=== PATIENT | male | born 1965 | race African-American/Black ===

== ENCOUNTER 2019-07-06 09:22 | Inpatient (IN) | payer SELFPAY ==
[2019-07-06 10:03] VITALS: BMI 24.7
--- NOTE | 2019-07-06 11:00 | HP ---
"CIWA Score Nausea/Vomitin-No Nausea/No Vomiting Muscle Tremors: None Anxiety: 0-No Anxiety, at Ease Agitation: 1-Slight > Activity Paroxysmal Sweats: 2 Orientation: 2-Disoriented Date<2 days Tacttile Disturbances: 0-None Auditory Disturbances: 0-None Visual Disturbances: 2-Mild Sensitivity Headache: 0-None Present CIWA-Ar Total Score: 7 - Admission Criteria OASAS Guidelines: Admission for Medically Managed Detox: Requires at least one of the followin. CIWA greater than 12 2. Seizures within the past 24 hours 3. Delirium tremens within the past 24 hours 4. Hallucinations within the past 24 hours 5. Acute intervention needed for co occurring medical disorder 6. Acute intervention needed for co occurring psychiatric disorder 7. Severe withdrawal that cannot be handled at a lower level of care (continued vomiting, continued diarrhea, abnormal vital signs) requiring intravenous medication and/or fluids 8. Admitting History and Physical - Smoking History Smoking history: Current every day smoker Have you smoked in the past 12 months: Yes Aproximately how many cigarettes per day: 20 - Alcohol/Substance Use Hx Alcohol Use: Yes Admission [facility] Allergies/Adverse Reactions: Allergies Allergy/AdvReac Type Severity Reaction Status Date / Time lactose Allergy Verified 07/06/19 09:53 History of Present Illness: This report was requested by: Eloise Kaplan | Reference #: [id number] Others' Prescriptions Patient Name: Antonio Levin Date: 1965 Address: [address] [place] [address] Sex: Male Rx Written Rx Dispensed Drug Quantity Days Supply Prescriber Name 04/03/2019 04/05/2019 chlordiazepoxide 10 mg capsule 6 2 Denise Wheatley) 02/03/2019 02/03/2019 chlordiazepoxide 10 mg capsule 2 1 Denise Wheatley) 01/17/2019 01/17/2019 chlordiazepoxide 10 mg capsule 2 1 Denise Wheatley) 01/16/2019 01/16/2019 chlordiazepoxide 10 mg capsule 2 1 Denise Wheatley) pt here requesting detox from opiate use , reports alcohol 2 x 6-pk /day or 2 pints/day , denies blackouts or seizures , occasional tremors , latest use 2 hours ago. cocaine : 100 $/day via inhalation tobacco : 1 ppd PMHX : DVT LE since age 20 ,previoulsy on Coumadin stopped 6 mo ago per pt was told to stop has been taking intermittently since age 20 , refused IVC filter , DM II diet-controlled , PE x 2 PSHX :denies PSych : denies Exam Limitations: Clinical Condition, Intoxication - Ebola screening Have you traveled outside of the country in the last 21 days: No (N) Have you had contact with anyone from an Ebola affected area: No Do you have a fever: No - Review of Systems Constitutional: Loss of Appetite EENT: reports: Other (glasses , misisng teeth) Respiratory: reports: No Symptoms reported Cardiac: reports: No Symptoms Reported GI: reports: Constipated, Poor Appetite : reports: No Symptoms Reported Musculoskeletal: reports: No Symptoms Reported Integumentary: reports: Other (foot blister) Neuro: reports: No Symptoms reported Endocrine: reports: See HPI Psychiatric: reports: Mood/Affect Appropiate, Disorientated Patient History - Patient Medical History Hx Anemia: No Hx Asthma: No Hx Chronic Obstructive Pulmonary Disease (COPD): No Hx Cancer: No Hx Cardiac Disorders: No Hx Congestive Heart Failure: No Hx Hypertension: No Hx Hypercholesterolemia: No Hx Pacemaker: No HX Cerebrovascular Accident: No Hx Seizures: No Hx Dementia: No Hx Diabetes: Yes Hx Gastrointestinal Disorders: No Hx Liver Disease: No Hx Genitourinary Disorders: No Hx Sexually Transmitted Disorders: No Hx Renal Disease (ESRD): No Hx Thyroid Disease: No Hx Human Immunodeficiency Virus (HIV): No Hx Hepatitis C: No Hx Depression: No Hx Suicide Attempt: No Hx Bipolar Disorder: No Hx Schizophrenia: No - Patient Surgical History Past Surgical History: No Hx Neurologic Surgery: No Hx Cataract Extraction: No Hx Cardiac Surgery: No Hx Lung Surgery: No Hx Breast Surgery: No Hx Breast Biopsy: No Hx Abdominal Surgery: No Hx Appendectomy: No Hx Cholecystectomy: No Hx Genitourinary Surgery: No Hx Section: No Hx Orthopedic Surgery: No Anesthesia Reaction: No - PPD History Date: 05/25/14 - Smoking Cessation Smoking history: Current every day smoker Have you smoked in the past 12 months: Yes Aproximately how many cigarettes per day: 20 Hx Chewing Tobacco Use: No Initiated information on smoking cessation: Yes 'Breaking Loose' booklet given: 07/06/19 - Substances abused Alcohol Substance route: Oral Frequency: Daily Amount used: 2 pints of vodka/ or 2 6pks beer Age of first use: 16 Date of last use: 07/06/19 Cocaine Substance route: Smoking Frequency: Daily Amount used: $100 Age of first use: 45 Date of last use: 07/05/19 Heroin Substance route: Inhalation Frequency: 1-2 times per week Amount used: 1 bag Age of first use: 50 Date of last use: 07/04/19 Admission Physical Exam S - Vital Signs Vital Signs: Vital Signs - 24 hr 07/06/19 09:54 Temperature 97.1 F L Pulse Rate 97 H Respiratory 18 Rate Blood Pressure 115/63 - Physical General Appearance: Yes: No Apparent Distress, Alcohol on Breath, Intoxicated HEENTM: Yes: EOMI, Hearing grossly Normal, Normocephalic, Normal Voice Respiratory: Yes: Chest Non-Tender, Lungs Clear, Normal Breath Sounds, No Respiratory Distress, No Accessory Muscle Use Neck: Yes: No masses,lesions,Nodules, Trachea in good position Cardiology: Yes: Regular Rhythm, Regular Rate, S1, S2, Tachycardia Abdominal: Yes: Normal Bowel Sounds, Non Tender, Soft Musculoskeletal: Yes: Gait Steady Extremities: Yes: Normal Range of Motion, Non-Tender Neurological: Yes: Alert, Motor Strength 5/5, Normal Mood/Affect Integumentary: Yes: Warm, Other (LE edema, neg Homans , no calf tenderness) - Diagnostic (1) Alcohol dependence Current Visit: Yes Status: Chronic Qualifiers: Substance use status: with intoxication (2) Cocaine dependence Current Visit: Yes Status: Chronic Qualifiers: Substance use status: uncomplicated Qualified Code(s): F14.20 - Cocaine dependence, uncomplicated Inpatient Rehab Admission - Rehab Decision to Admit Inpatient rehab admission?: No"
[2019-07-06] MEDS ORDERED: MAG HYDROX/AL HYDROX/SIMETH 30 ML UNIT-DOSE CUP PO PRN (11:15)
[2019-07-06] MEDS ORDERED: BISMUTH SUBSALICYLATE 262 MG/15 ML BTL PO PRN (11:15)
[2019-07-06] MEDS ORDERED: ACETAMINOPHEN 325 MG TABLET (FP) PO PRN ×2 (11:15)
[2019-07-06] MEDS ORDERED: MAGNESIUM HYDROX 2400MG/30ML ORAL SUSPENSION 30 ML CUP PO PRN (11:15)
[2019-07-06] MEDS ORDERED: MAGNESIUM CITRATE 300 ML BOTTLE PO PRN (11:15)
[2019-07-06] MEDS ORDERED: MENTHOL/PHENOL 1 EACH UD MM PRN (11:15)
[2019-07-06] MEDS ORDERED: MELATONIN 5 MG TABLETS PO PRN (11:15)
[2019-07-06] MEDS ORDERED: hydrOXYzine PAMOATE 25 MG CAPSULE (FP) PO PRN (11:15)
[2019-07-06] MEDS ORDERED: IBUPROFEN 400 MG TABLET (FP) PO PRN (11:15)
[2019-07-06] MEDS ORDERED: diazePAM 5 MG TABLET PO PRN (11:28)
[2019-07-06] MEDS: ASPIRIN 81 MG CHEWABLE TABLETS PO SCH (11:52)
[2019-07-06 14:07] LABS: HEMATOCRIT 44.3 % (35.4-49); HEMOGLOBIN 14.8 GM/dL (11.7-16.9); MCH 32.5 pg (25.7-33.7); MCHC 33.5 g/dl (32.0-35.9); MEAN PLT VOLUME 8.5 fl (7.5-11.1); PLATELET COUNT 230 K/MM3 (134-434); RBC 4.56 M/mm3 (4.00-5.60); RDW 13.4 % (11.9-15.9); WHITE BLOOD COUNT 5.7 K/mm3 (4.0-10.0)
[2019-07-06 14:12] LABS: ALBUMIN 3.3 g/dl (3.4-5.0); BILIRUBIN,TOTAL 0.2 mg/dL (0.2-1); CALCIUM 8.7 mg/dL (8.5-10.1); CREATININE 1.2 mg/dL (0.55-1.3); POTASSIUM 3.9 mmol/L (3.5-5.1); TOT PROT 6.4 g/dl (6.4-8.2)
[2019-07-06] MEDS: diazePAM 5 MG TABLET PO SCH ×2 (15:18→22:23)
[2019-07-06] MEDS ORDERED: THIAMINE HCL 100 MG TABLET (FP) PO SCH (22:00)
[2019-07-07] MEDS: diazePAM 5 MG TABLET PO SCH (06:14)
[2019-07-07] MEDS ORDERED: diazePAM 5 MG TABLET PO SCH (10:00)
[2019-07-07] MEDS ORDERED: PRENATAL VITAMINS W/ FOLIC ACID TABLET (FP) PO SCH (10:00)
[2019-07-07] MEDS: ASPIRIN 81 MG CHEWABLE TABLETS PO SCH (10:16)
[2019-07-07] MEDS ORDERED: HYDROCORTISONE 1% TOPICAL OINT 30 GM TUBE TP PRN (12:09)
--- NOTE | 2019-07-07 12:09 | PN ---
S CIWA - CIWA Score Nausea/Vomitin Muscle Tremors: 2 Anxiety: 3 Agitation: 1-Slight > Activity Paroxysmal Sweats: 2 Orientation: 0-Oriented Tacttile Disturbances: 2-Mild Itch/Numbness/Burn Auditory Disturbances: 0-None Visual Disturbances: 0-None Headache: 0-None Present CIWA-Ar Total Score: 13 B[facility] Progress Note (SOAP) Subjective: c/o of pruritus abdominal area d/t eczema, chills, sweats, nausea and vomiting Objective: 07/07/19 12:12 Vital Signs Temperature 97.7 F 07/07/19 09:47 Pulse Rate 80 07/07/19 09:47 Respiratory Rate 18 07/07/19 09:47 Blood Pressure 106/68 07/07/19 09:47 O2 Sat by Pulse Oximetry (%) Laboratory Last Values WBC 5.7 K/mm3 (4.0-10.0) 07/06/19 12:45 RBC 4.56 M/mm3 (4.00-5.60) 07/06/19 12:45 Hgb 14.8 GM/dL (11.7-16.9) 07/06/19 12:45 Hct 44.3 % (35.4-49) 07/06/19 12:45 MCV 97.0 fl (80-96) H 07/06/19 12:45 MCH 32.5 pg (25.7-33.7) 07/06/19 12:45 MCHC 33.5 g/dl (32.0-35.9) 07/06/19 12:45 RDW 13.4 % (11.9-15.9) D 07/06/19 12:45 Plt Count 230 K/MM3 (134-434) 07/06/19 12:45 MPV 8.5 fl (7.5-11.1) 07/06/19 12:45 Sodium 141 mmol/L (136-145) 07/06/19 12:45 Potassium 3.9 mmol/L (3.5-5.1) 07/06/19 12:45 Chloride 105 mmol/L (98-107) 07/06/19 12:45 Carbon Dioxide 26 mmol/L (21-32) 07/06/19 12:45 Anion Gap 10 MMOL/L (8-16) 07/06/19 12:45 BUN 18.0 mg/dL (7-18) 07/06/19 12:45 Creatinine 1.2 mg/dL (0.55-1.3) 07/06/19 12:45 Est GFR (CKD-EPI)AfAm 78.98 07/06/19 12:45 Est GFR (CKD-EPI)NonAf 68.14 07/06/19 12:45 POC Glucometer 117 UNITS (80-120) 07/06/19 16:52 Random Glucose 172 mg/dL (74-106) H 07/06/19 12:45 Calcium 8.7 mg/dL (8.5-10.1) 07/06/19 12:45 Total Bilirubin 0.2 mg/dL (0.2-1) 07/06/19 12:45 AST 29 U/L (15-37) 07/06/19 12:45 ALT 35 U/L (13-61) 07/06/19 12:45 Alkaline Phosphatase 115 U/L (45-117) 07/06/19 12:45 Total Protein 6.4 g/dl (6.4-8.2) 07/06/19 12:45 Albumin 3.3 g/dl (3.4-5.0) L 07/06/19 12:45 RPR Titer Nonreactive (NONREACTIVE) 07/06/19 12:45 Labs reviewed, follow up with primary care provider upon discharge Assessment: 07/07/19 12:13 Aox3 no acute distress EENT WNL + linchification on skin lower abdominal area full ROM no gait disturbance ambulating in the unit withdrawal sx eczema Plan: increase po fluids continue detox hydrocortisone PRN for itching continue to monitor
[2019-07-07 13:16] VITALS: PULSE 89
[2019-07-07 17:07] VITALS: BP 109/77; TEMP 98.7
--- NOTE | 2019-07-07 19:42 | PN ---
[facility] Progress Note Note: Met w/ patient who states is leaving because of insurance reasons. States scheduled to leave in a.m. and would rather go home tonight because has transportation available to go home. States only mild tremors and little anxiety but otherwise feels well. Risks of relapse discussed. Encouraged to go to a community support program until insurance cleared for admission to rehab. Patient verbalizes an understanding of risks.
--- NOTE | 2019-07-07 19:50 | DS ---
[facility] Detox Discharge Summary Admission Date: 07/06/19 Discharge Date: 07/07/19 - History Present History: Alcohol Dependence, Cocaine Dependence, Opioid Dependence ( Intermittent opioid use disorder) Additional Comments: Here seeking alcohol detox. Pertinent Past History: Hx: Cocaine UD; Tobacco UD; Opioid UD PMHX : DVT (not on meds); DM II diet-controlled - Physical Exam Results Vital Signs: Vital Signs Temperature 98.7 F 07/07/19 17:06 Pulse Rate 89 07/07/19 17:06 Respiratory Rate 18 07/07/19 17:06 Blood Pressure 109/77 07/07/19 17:06 O2 Sat by Pulse Oximetry (%) Pertinent Admission Physical Exam Findings: Patient admitted w/ alcohol withdrawal symptoms Laboratory Last Values WBC 5.7 K/mm3 (4.0-10.0) 07/06/19 12:45 RBC 4.56 M/mm3 (4.00-5.60) 07/06/19 12:45 Hgb 14.8 GM/dL (11.7-16.9) 07/06/19 12:45 Hct 44.3 % (35.4-49) 07/06/19 12:45 MCV 97.0 fl (80-96) H 07/06/19 12:45 MCH 32.5 pg (25.7-33.7) 07/06/19 12:45 MCHC 33.5 g/dl (32.0-35.9) 07/06/19 12:45 RDW 13.4 % (11.9-15.9) D 07/06/19 12:45 Plt Count 230 K/MM3 (134-434) 07/06/19 12:45 MPV 8.5 fl (7.5-11.1) 07/06/19 12:45 Sodium 141 mmol/L (136-145) 07/06/19 12:45 Potassium 3.9 mmol/L (3.5-5.1) 07/06/19 12:45 Chloride 105 mmol/L (98-107) 07/06/19 12:45 Carbon Dioxide 26 mmol/L (21-32) 07/06/19 12:45 Anion Gap 10 MMOL/L (8-16) 07/06/19 12:45 BUN 18.0 mg/dL (7-18) 07/06/19 12:45 Creatinine 1.2 mg/dL (0.55-1.3) 07/06/19 12:45 Est GFR (CKD-EPI)AfAm 78.98 07/06/19 12:45 Est GFR (CKD-EPI)NonAf 68.14 07/06/19 12:45 POC Glucometer 117 UNITS (80-120) 07/06/19 16:52 Random Glucose 172 mg/dL (74-106) H 07/06/19 12:45 Calcium 8.7 mg/dL (8.5-10.1) 07/06/19 12:45 Total Bilirubin 0.2 mg/dL (0.2-1) 07/06/19 12:45 AST 29 U/L (15-37) 07/06/19 12:45 ALT 35 U/L (13-61) 07/06/19 12:45 Alkaline Phosphatase 115 U/L (45-117) 07/06/19 12:45 Total Protein 6.4 g/dl (6.4-8.2) 07/06/19 12:45 Albumin 3.3 g/dl (3.4-5.0) L 07/06/19 12:45 RPR Titer Nonreactive (NONREACTIVE) 07/06/19 12:45 Labs reviewed. - Treatment Hospital Course: Detox Protocol Followed, Responded well, Discharged Condition Good - Medication Discharge Medications: Ambulatory Orders Hydrocortisone 1% Ointment [Hytone 1% Ointment -] 1 applic TP BID PRN #1 tube - Diagnosis (1) Alcohol dependence with withdrawal, uncomplicated Current Visit: Yes Status: Acute (2) Opioid abuse, uncomplicated Current Visit: Yes Status: Chronic (3) Nicotine dependence, unspecified, uncomplicated Current Visit: Yes Status: Chronic (4) Cocaine dependence Current Visit: Yes Status: Chronic Qualifiers: Substance use status: uncomplicated Qualified Code(s): F14.20 - Cocaine dependence, uncomplicated - AMA Did Patient Leave Against Medical Advice: No
[2019-07-08] MEDS ORDERED: diazePAM 5 MG TABLET PO ONE (06:00)
== END 2019-07-07 19:55 | disposition home or self-care (01) | DRG 773 ==
LOC: YASAS 09:22 → Y3N 11:27
PROVIDERS: ADMIT Allergy & Immunology; ATTEND Allergy & Immunology
PROC: HZ2ZZZZ Detoxification Services for Substance Abuse Treatment (ICD-10-PCS; principal; 2019-07-06)
DX: F10.230 Alcohol dependence with withdrawal, uncomplicated (principal); F10.220 Alcohol dependence with intoxication, uncomplicated; F11.10 Opioid abuse, uncomplicated; F14.20 Cocaine dependence, uncomplicated; F17.210 Nicotine dependence, cigarettes, uncomplicated; E11.9 Type 2 diabetes mellitus without complications; L29.9 Pruritus, unspecified; L30.9 Dermatitis, unspecified; Z86.718 Personal history of other venous thrombosis and embolism; Z91.011 Allergy to milk products
CPT/HCPCS: 36415; 80053; 82962; 85027; 86593

== ENCOUNTER 2020-04-06 17:33 | Inpatient (IN) | payer OTHER ==
--- OUTSIDE RECORDS SUMMARY | 2020-04-06 17:38 | XMS ---
:1965 Author Organization [facility] Support Name Relationship Address Phone UE Unavailable Unavailable Unavailable RAJI [place] [address] Re-disclosure Warning The records that you are about to access may contain information from federally- assisted alcohol or drug abuse programs. If such information is present, then the following federally mandated warning applies: This information has been disclosed to you from records protected by federal confidentiality rules (42 CFR part 2). The federal rules prohibit you from making any further disclosure of this information unless further disclosure is expressly permitted by the written consent of the person to whom it pertains or as otherwise permitted by 42 CFR part 2. A general authorization for the release of medical or other information is NOT sufficient for this purpose. The Federal rules restrict any use of the information to criminally investigate or prosecute any alcohol or drug abuse patient.The records that you are about to access may contain highly sensitive health information, the redisclosure of which is protected by Article 27-F of the [place] Public Health law. If you continue you may haveaccess to information: Regarding HIV / AIDS; Provided by facilities licensed or operated by the [facility] Office of Mental Health; or Provided by the [facility] Office for People With Developmental Disabilities. If such information is present, then the following [facility] mandated warning applies: This information has been disclosed to you from confidential records which are protected by state law. State law prohibits you from making any further disclosure of this information without the specific written consent of the person to whom it pertains, or as otherwise permitted by law. Any unauthorized further disclosure in violation of state law may result in a fine or prison sentence or both. A general authorization for the release of medical or other information is NOT sufficient authorization for further disclosure. Insurance Providers Payer name Policy type Policy ID Covered Covered alliance party's Policy P eileen / Coverage alliance party ID relationship to [employer] Inf ormation type ferguson [facility] [id number] SP [id number] Q SELF PAY SP INSURANCE Results ID Date Data Source [id number] 02/13/2020 12:00:00 AM EDT [facility] Name Value Range Interpretation Code Description Data Lynn rce(s) Supporting Document(s ) [facility] RNA XXX DELMAR+probe- Imp This lab was ordered by [employer] and reported by [employer]. ID Date Data Source [id number] 12/12/2019 08:50:00 AM EDT [facility] Name Value Range Interpretation Code Description Data Lynn rce(s) Supporting Document(s ) [facility] RNA XXX DELMAR+probe- Imp This lab was ordered by Department [facility] and reported by [facility]. ID Date Data Source [id number] 12/12/2019 08:49:00 AM EDT [facility] Name Value Range Interpretation Code Description Data Lynn rce(s) Supporting Document(s ) [facility] RNA XXX DELMAR+probe- Imp [facility] and reported by [facility]. ID Date Data Source [id number] 12/12/2019 08:49:00 AM EDT [facility] Name Value Range Interpretation Code Description Data Lynn rce(s) Supporting Document(s ) [facility] RNA XXX DELMAR+probe- Imp This lab was [facility] and reported by [facility]. Procedure
--- NOTE | 2020-04-06 20:49 | BHS.RME ---
Substance Use & Tx History - Last Treatment Date of last treatment: Where was last treatment: Detox Physical/Psych/Mental Status - Behavior Eye Contact: Normal - Cooperativeness Cooperativeness: Cooperative - Thinking Thought Processes: Logical - Physical Health Problems Is patient presently having any pain?: No Does patient presently have any injuries (include location): Yes (hands - h/o arthritis in hands ) Does patient currently have a fever: No CIWA Nausea/Vomitin Muscle Tremors: 2 Anxiety: 2 Agitation: 1-Slight > Activity Paroxysmal Sweats: 1-Minimal Palms Moist Orientation: 3-Disoriented Date>2 days Tacttile Disturbances: 0-None Auditory Disturbances: 0-None Visual Disturbances: 2-Mild Sensitivity Headache: 0-None Present CIWA-Ar Total Score: 13
--- NOTE | 2020-04-06 20:54 | HP ---
CIWA Score Nausea/Vomitin Muscle Tremors: 2 Anxiety: 2 Agitation: 1-Slight > Activity Paroxysmal Sweats: 1-Minimal Palms Moist Orientation: 3-Disoriented Date>2 days Tacttile Disturbances: 0-None Auditory Disturbances: 0-None Visual Disturbances: 2-Mild Sensitivity Headache: 0-None Present CIWA-Ar Total Score: 13 - Admission Criteria OASAS Guidelines: Admission for Medically Managed Detox: Requires at least one of the followin. CIWA greater than 12 2. Seizures within the past 24 hours 3. Delirium tremens within the past 24 hours 4. Hallucinations within the past 24 hours 5. Acute intervention needed for co occurring medical disorder 6. Acute intervention needed for co occurring psychiatric disorder 7. Severe withdrawal that cannot be handled at a lower level of care (continued vomiting, continued diarrhea, abnormal vital signs) requiring intravenous medication and/or fluids 8. Admitting History and Physical - Smoking History Smoking history: Current every day smoker Have you smoked in the past 12 months: Yes Aproximately how many cigarettes per day: 20 - Alcohol/Substance Use Hx Alcohol Use: Yes Admission [facility] Allergies/Adverse Reactions: Allergies Allergy/AdvReac Type Severity Reaction Status Date / Time lactose Allergy Verified 07/06/19 09:53 peanut Allergy Verified 04/06/20 21:41 peanut Allergy Uncoded 04/06/20 21:41 History of Present Illness: 54 y.o. male requesting detox from alcohol use , reports 2 x 6-pk /day or 2 pints/day, denies blackouts or seizures , occasional tremors , latest use today. cocaine : 300-400 $/day via inhalation tobacco : 1 ppd PMHX : DVT LE since age 20 ,previoulsy on Coumadin stopped > 3 mo ago per pt was told to stop has been taking intermittently since age 20 , refused IVC filt er , DM II diet-controlled , PE x 2 PSHX :denies PSych : denies Exam Limitations: Clinical Condition - Review of Systems Constitutional: Loss of Appetite EENT: reports: See HPI, Other (reading glasses) Respiratory: reports: No Symptoms reported Cardiac: reports: No Symptoms Reported GI: reports: Diarrhea, Nausea, Poor Appetite : reports: No Symptoms Reported Musculoskeletal: reports: Back Pain (chronic), Joint Stiffness (bilateral hands) Integumentary: reports: No Symptoms Reported Neuro: reports: No Symptoms reported Endocrine: reports: See HPI Hematology: reports: See HPI, Blood Clots Psychiatric: reports: Anxious, Disorientated Patient History - Patient Medical History Hx Anemia: No Hx Asthma: No Hx Chronic Obstructive Pulmonary Disease (COPD): No Hx Cancer: No Hx Cardiac Disorders: No Hx Congestive Heart Failure: No Hx Hypertension: No Hx Hypercholesterolemia: No Hx Pacemaker: No HX Cerebrovascular Accident: No Hx Seizures: No Hx Dementia: No Hx Diabetes: Yes Hx Gastrointestinal Disorders: No Hx Liver Disease: No Hx Genitourinary Disorders: No Hx Sexually Transmitted Disorders: No Hx Renal Disease (ESRD): No Hx Thyroid Disease: No Hx Human Immunodeficiency Virus (HIV): No Hx Hepatitis C: No Hx Depression: No Hx Suicide Attempt: No Hx Bipolar Disorder: No Hx Schizophrenia: No - Patient Surgical History Past Surgical History: No Hx Neurologic Surgery: No Hx Cataract Extraction: No Hx Cardiac Surgery: No Hx Lung Surgery: No Hx Breast Surgery: No Hx Breast Biopsy: No Hx Abdominal Surgery: No Hx Appendectomy: No Hx Cholecystectomy: No Hx Genitourinary Surgery: No Hx Section: No Hx Orthopedic Surgery: No Anesthesia Reaction: No - PPD History Date: 05/25/14 - Smoking Cessation Smoking history: Current every day smoker Have you smoked in the past 12 months: Yes Aproximately how many cigarettes per day: 20 Hx Chewing Tobacco Use: No Initiated information on smoking cessation: Yes 'Breaking Loose' booklet given: 04/07/20 - Substances abused Alcohol Substance route: Oral Frequency: Daily Amount used: pint vodka Age of first use: 19 Date of last use: 04/06/20 Admission Physical Exam [facility] - Physical General Appearance: Yes: Disheveled, Mild Distress HEENTM: Yes: EOMI, Hearing grossly Normal, Normocephalic, Normal Voice Respiratory: Yes: Chest Non-Tender, Lungs Clear, Normal Breath Sounds, No Respiratory Distress, No Accessory Muscle Use Neck: Yes: No masses,lesions,Nodules, Trachea in good position Cardiology: Yes: Regular Rhythm, Regular Rate, S1, S2, Tachycardia Abdominal: Yes: Non Tender, Soft Back: Yes: Normal Inspection Musculoskeletal: Yes: Gait Steady Extremities: Yes: Other (stiffness in hands) Neurological: Yes: Fully Oriented, Alert, Normal Mood/Affect Integumentary: Yes: Warm - Diagnostic (1) Alcohol dependence with withdrawal, uncomplicated Current Visit: Yes Status: Acute (2) Cocaine dependence Current Visit: Yes Status: Chronic Qualifiers: Substance use status: uncomplicated Qualified Code(s): F14.20 - Cocaine dependence, uncomplicated (3) Nicotine dependence, unspecified, uncomplicated Current Visit: Yes Status: Chronic Qualifiers: Nicotine product type: cigarettes Qualified Code(s): F17.210 - Nicotine dependence, cigarettes, uncomplicated Breathalyzer - Breathalyzer Breathalyzer: 0 Urine Drug Screen - Test Device Lot number: [id number] Expiration date: 10/24/21 - Control Is test valid?: Yes - Results Drug screen NEGATIVE: No Urine drug screen results: [facility]-Cocaine Inpatient Rehab Admission - Rehab Decision to Admit Inpatient rehab admission?: No
[2020-04-06] MEDS ORDERED: MAGNESIUM HYDROX 2400MG/30ML ORAL SUSPENSION 30 ML CUP PO PRN (20:58)
[2020-04-06] MEDS ORDERED: ONDANSETRON *ODT* 4 MG TABLET SL PRN (20:58)
[2020-04-06] MEDS ORDERED: MAGNESIUM CITRATE 300 ML BOTTLE PO PRN (20:58)
[2020-04-06] MEDS ORDERED: MENTHOL/PHENOL 1 EACH UD MM PRN (20:58)
[2020-04-06] MEDS ORDERED: MAG HYDROX/AL HYDROX/SIMETH 30 ML UNIT-DOSE CUP PO PRN (20:58)
[2020-04-06] MEDS ORDERED: METHOCARBAMOL 500 MG TABLET PO PRN (20:58)
[2020-04-06] MEDS ORDERED: ACETAMINOPHEN 325 MG TABLET (FP) PO PRN ×2 (20:58)
[2020-04-06] MEDS ORDERED: hydrOXYzine PAMOATE 25 MG CAPSULE (FP) PO PRN (20:58)
[2020-04-06] MEDS ORDERED: IBUPROFEN 400 MG TABLET (FP) PO PRN (20:58)
[2020-04-06] MEDS ORDERED: BISMUTH SUBSALICYLATE 524 MG/30 ML UD PO PRN (20:58)
[2020-04-06] MEDS ORDERED: chlordiazePOXIDE HCL 25 MG CAPSULE PO PRN (21:00)
--- OUTSIDE RECORDS SUMMARY | 2020-04-06 21:20 | XMS ---
:1965 Author Organization [facility] Support Name Relationship Address Phone UE Unavailable Unavailable Unavailable RAJI NIC[place]LE [place] [address] Re-disclosure Warning The records that you are [...] is protected by Article 27-F of the [facility] Public Health law. If you continue you may haveaccess to information: Regarding HIV / AIDS; Provided by facilities licensed or operated by the [facility] Office of Mental Health; or Provided by the [facility] Office for People With Developmental Disabilities. If such information is present, then the following [facility] mandated warning applies: This information has been [...] law may result in a fine or senior living sentence or both. A general authorization for the release of medical or other information is NOT sufficient authorization for further disclosure. Insurance Providers Payer name Policy type Policy ID Covered Covered green party's Policy P eileen / Coverage green party ID relationship to [employer] ormation type ferguson [facility] [id number] SP [id number] Q SELF PAY SP INSURANCE Results ID Date Data Source [id number] 02/13/2020 12:00:00 AM EDT [facility] Name Value Range Interpretation Code Description Data Lynn rce(s) Supporting Document(s ) [facility] RNA XXX DELMAR+probe- Imp This lab was ordered by [employer] and reported by [employer]. ID Date Data Source [id number] 12/12/2019 08:50:00 AM EDT [facility] Name Value Range Interpretation Code Description Data Lynn rce(s) Supporting Document(s ) [facility] RNA XXX DELMAR+probe- Imp This lab was ordered by Department [facility] and reported by [facility]. ID Date Data Source [id number] 12/12/2019 08:49:00 AM EDT [facility] Name Value Range Interpretation Code Description Data Lynn rce(s) Supporting Document(s ) [facility] RNA XXX DELMAR+probe- Imp This lab [facility] and reported by [facility]. ID Date Data Source [id number] 12/12/2019 08:49:00 AM EDT [facility] Name Value Range Interpretation Code Description Data Lynn rce(s) Supporting Document(s ) [facility] RNA XXX DELMAR+probe- Imp This lab was ordered [facility] and reported by [facility]. Procedure
[2020-04-06 21:33] VITALS: BMI 25.8
[2020-04-06] MEDS: chlordiazePOXIDE HCL 25 MG CAPSULE PO SCH (23:08)
[2020-04-06] MEDS: THIAMINE HCL 100 MG TABLET (FP) PO SCH (23:08)
[2020-04-06] MEDS: MELATONIN 5 MG TABLETS PO SCH (23:08)
[2020-04-07] MEDS: chlordiazePOXIDE HCL 25 MG CAPSULE PO SCH ×4 (06:29→22:31)
[2020-04-07] MEDS: PRENATAL VITAMINS W/ FOLIC ACID TABLET (FP) PO SCH (10:54)
[2020-04-07] MEDS: ASPIRIN 81 MG CHEWABLE TABLETS PO SCH (10:54)
[2020-04-07 11:16] LABS: ALBUMIN 3.2 g/dl (3.4-5.0); BILIRUBIN,TOTAL 1.1 mg/dL (0.2-1); BLOOD UREA NITROGEN 16.2 mg/dL (7-18); CALCIUM 8.6 mg/dL (8.5-10.1); CREATININE 1.2 mg/dL (0.55-1.3); POTASSIUM 3.7 mmol/L (3.5-5.1); TOT PROT 6.1 g/dl (6.4-8.2)
[2020-04-07 11:44] LABS: HEMATOCRIT 43.9 % (35.4-49); HEMOGLOBIN 14.7 GM/dL (11.7-16.9); MCHC 33.5 g/dl (32.0-35.9); MEAN CELL VOLUME 98.6 fl (80-96); MEAN PLT VOLUME 9.2 fl (7.5-11.1); PLATELET COUNT 201 K/MM3 (134-434); RBC 4.45 M/mm3 (4.00-5.60); RDW 14.8 % (11.9-15.9); WHITE BLOOD COUNT 4.5 K/mm3 (4.0-10.0)
--- NOTE | 2020-04-07 16:18 | PN ---
[facility] CIWA - CIWA Score Nausea/Vomitin-Mild Nausea/No Vomiting Muscle Tremors: 2 Anxiety: 2 Agitation: 2 Paroxysmal Sweats: 2 Orientation: 0-Oriented Tacttile Disturbances: 1-Very Mild Itch/Numbness Auditory Disturbances: 0-None Visual Disturbances: 0-None Headache: 1-Very Mild CIWA-Ar Total Score: 11 BHS Progress Note (SOAP) Subjective: Sweating, tremor, chills, nausea, feeling tired Objective: 04/07/20 16:13 Last Vital Signs Temp Pulse Resp BP Pulse Ox 98.2 F 78 18 141/77 98 04/07/20 12:38 04/07/20 12:38 04/07/20 12:38 04/07/20 12:38 04/07/20 12:38 Elevated b/p noted Laboratory Tests 04/07/20 04/07/20 04/07/20 07:30 07:30 07:30 WBC 4.5 RBC 4.45 Hgb 14.7 Hct 43.9 MCV 98.6 H MCH 33.0 MCHC 33.5 RDW 14.8 D Plt Count 201 MPV 9.2 Sodium 142 Potassium 3.7 Chloride 106 Carbon Dioxide 34 H Anion Gap 3 L BUN 16.2 Creatinine 1.2 Est GFR (CKD-EPI)AfAm 78.98 Est GFR (CKD-EPI)NonAf 68.14 Random Glucose 93 Calcium 8.6 Total Bilirubin 1.1 H AST 50 H ALT 78 H Alkaline Phosphatase 89 Total Protein 6.1 L Albumin 3.2 L Syphilis Serology Non-reactive Labs reviewed: abnormal LFTs noted Assessment: 04/07/20 16:15 Withdrawal sxs Elevated b/p and abnormal LFTs noted Plan: Continue detox Encourage PO water intake Elevated b/p: denies htn, could be withdrawal related, monitor b/p Abnormal LFTs: repeat hepatic function panel
[2020-04-07] MEDS: MELATONIN 5 MG TABLETS PO SCH (22:32)
[2020-04-07] MEDS: THIAMINE HCL 100 MG TABLET (FP) PO SCH (22:32)
[2020-04-08] MEDS: chlordiazePOXIDE HCL 25 MG CAPSULE PO SCH ×4 (06:31→22:27)
[2020-04-08] MEDS: ASPIRIN 81 MG CHEWABLE TABLETS PO SCH (10:05)
[2020-04-08] MEDS: PRENATAL VITAMINS W/ FOLIC ACID TABLET (FP) PO SCH (10:05)
--- NOTE | 2020-04-08 10:10 | PN ---
S CIWA - CIWA Score Nausea/Vomitin-No Nausea/No Vomiting Muscle Tremors: 2 Anxiety: 2 Agitation: 3 Paroxysmal Sweats: 2 Orientation: 0-Oriented Tacttile Disturbances: 0-None Auditory Disturbances: 0-None Visual Disturbances: 0-None Headache: 0-None Present CIWA-Ar Total Score: 9 S Progress Note (SOAP) Subjective: sweats shakes interrupted sleep chills Objective: 04/08/20 10:09 Vital Signs Temperature 97.3 F L 04/08/20 08:41 Pulse Rate 81 04/08/20 08:41 Respiratory Rate 18 04/08/20 08:41 Blood Pressure 128/71 04/08/20 08:41 O2 Sat by Pulse Oximetry (%) 98 04/08/20 08:41 Laboratory Tests 04/07/20 04/07/20 04/07/20 07:30 07:30 07:30 WBC 4.5 RBC 4.45 Hgb 14.7 Hct 43.9 MCV 98.6 H MCH 33.0 MCHC 33.5 RDW 14.8 D Plt Count 201 MPV 9.2 Sodium 142 Potassium 3.7 Chloride 106 Carbon Dioxide 34 H Anion Gap 3 L BUN 16.2 Creatinine 1.2 Est GFR (CKD-EPI)AfAm 78.98 Est GFR (CKD-EPI)NonAf 68.14 Random Glucose 93 Calcium 8.6 Total Bilirubin 1.1 H AST 50 H ALT 78 H Alkaline Phosphatase 89 Total Protein 6.1 L Albumin 3.2 L Syphilis Serology Non-reactive repeated labs pending aaox3 ambulating no acute distress Assessment: 04/08/20 10:09 withdrawals Plan: continue detox increase fluids
[2020-04-08 12:34] LABS: ALBUMIN 3.3 g/dl (3.4-5.0); BILIRUBIN,DIRECT 0.1 mg/dL (0.0-0.2); BILIRUBIN,TOTAL 0.2 mg/dL (0.2-1); TOT PROT 6.2 g/dl (6.4-8.2)
[2020-04-08] MEDS: THIAMINE HCL 100 MG TABLET (FP) PO SCH (22:26)
[2020-04-08] MEDS: MELATONIN 5 MG TABLETS PO SCH (22:27)
[2020-04-09] MEDS ORDERED: chlordiazePOXIDE HCL 10 MG CAPSULE PO PRN
[2020-04-09] MEDS: chlordiazePOXIDE HCL 10 MG CAPSULE PO SCH ×4 (05:57→22:45)
--- NOTE | 2020-04-09 09:25 | PN ---
S CIWA - CIWA Score Nausea/Vomitin-No Nausea/No Vomiting Muscle Tremors: 2 Anxiety: 1-Mildly Anxious Agitation: 1-Slight > Activity Paroxysmal Sweats: 1-Minimal Palms Moist Orientation: 0-Oriented Tacttile Disturbances: 0-None Auditory Disturbances: 0-None Visual Disturbances: 0-None Headache: 0-None Present CIWA-Ar Total Score: 5 BHS Progress Note (SOAP) Subjective: sweats dry feet dry/itchy patch to ankle area interrupted sleep Objective: 04/09/20 09:23 Vital Signs Temperature 96.2 F L 04/09/20 06:03 Pulse Rate 66 04/09/20 06:03 Respiratory Rate 18 04/09/20 06:03 Blood Pressure 114/66 04/09/20 06:03 O2 Sat by Pulse Oximetry (%) 98 04/09/20 06:03 Laboratory Tests 04/07/20 04/07/20 04/07/20 07:30 07:30 07:30 WBC 4.5 RBC 4.45 Hgb 14.7 Hct 43.9 MCV 98.6 H MCH 33.0 MCHC 33.5 RDW 14.8 D Plt Count 201 MPV 9.2 Sodium 142 Potassium 3.7 Chloride 106 Carbon Dioxide 34 H Anion Gap 3 L BUN 16.2 Creatinine 1.2 Est GFR (CKD-EPI)AfAm 78.98 Est GFR (CKD-EPI)NonAf 68.14 Random Glucose 93 Calcium 8.6 Total Bilirubin 1.1 H Direct Bilirubin AST 50 H ALT 78 H Alkaline Phosphatase 89 Total Protein 6.1 L Albumin 3.2 L Syphilis Serology Non-reactive 04/08/20 08:30 WBC RBC Hgb Hct MCV MCH MCHC RDW Plt Count MPV Sodium Potassium Chloride Carbon Dioxide Anion Gap BUN Creatinine Est GFR (CKD-EPI)AfAm Est GFR (CKD-EPI)NonAf Random Glucose Calcium Total Bilirubin 0.2 Direct Bilirubin 0.1 AST 38 H ALT 72 H Alkaline Phosphatase 112 Total Protein 6.2 L Albumin 3.3 L Syphilis Serology labs noted ambulating no acute distress Assessment: 04/09/20 09:23 withdrawals excessive dry feet noted plaque like patch noted to right ankle Plan: continue detox increase fluids lidex cream ordered eucerin oint ordered
[2020-04-09] MEDS: ASPIRIN 81 MG CHEWABLE TABLETS PO SCH (11:25)
[2020-04-09] MEDS: FLUOCINONIDE 0.05% CREAM (15 GM TUBE) TP SCH ×4 (11:25→22:45)
[2020-04-09] MEDS: PRENATAL VITAMINS W/ FOLIC ACID TABLET (FP) PO SCH (11:25)
[2020-04-09] MEDS: MINERAL OIL/PETROLAT/WATER TOPICAL CREAM 113 GM JAR TP SCH ×2 (11:26→22:45)
[2020-04-09] MEDS: THIAMINE HCL 100 MG TABLET (FP) PO SCH (22:45)
[2020-04-09] MEDS: MELATONIN 5 MG TABLETS PO SCH (22:45)
[2020-04-10] MEDS ORDERED: chlordiazePOXIDE HCL 10 MG CAPSULE PO SCH (05:00)
[2020-04-10 08:20] VITALS: BP 108/71; PULSE 64; TEMP 97.8
[2020-04-10] MEDS: PRENATAL VITAMINS W/ FOLIC ACID TABLET (FP) PO SCH (10:34)
[2020-04-10] MEDS: MINERAL OIL/PETROLAT/WATER TOPICAL CREAM 113 GM JAR TP SCH (10:34)
[2020-04-10] MEDS: FLUOCINONIDE 0.05% CREAM (15 GM TUBE) TP SCH (10:34)
[2020-04-10] MEDS: ASPIRIN 81 MG CHEWABLE TABLETS PO SCH (10:35)
--- NOTE | 2020-04-10 11:15 | PN ---
S CIWA - CIWA Score Nausea/Vomitin-No Nausea/No Vomiting Muscle Tremors: 1-None Visible, but [place] Anxiety: 1-Mildly Anxious Agitation: 0-Normal Activity Paroxysmal Sweats: No Perspiration Orientation: 0-Oriented Tacttile Disturbances: 0-None Auditory Disturbances: 0-None Visual Disturbances: 0-None Headache: 0-None Present CIWA-Ar Total Score: 2 BHS Progress Note (SOAP) Subjective: feeling good ready to go home Objective: 04/10/20 11:14 Vital Signs Temperature 97.8 F 04/10/20 05:36 Pulse Rate 64 04/10/20 05:36 Respiratory Rate 04/10/20 05:36 Blood Pressure 108/71 04/10/20 05:36 O2 Sat by Pulse Oximetry (%) 95 04/10/20 05:36 Laboratory Tests 04/07/20 04/07/20 04/07/20 07:30 07:30 07:30 WBC 4.5 RBC 4.45 Hgb 14.7 Hct 43.9 MCV 98.6 H MCH 33.0 MCHC 33.5 RDW 14.8 D Plt Count 201 MPV 9.2 Sodium 142 Potassium 3.7 Chloride 106 Carbon Dioxide 34 H Anion Gap 3 L BUN 16.2 Creatinine 1.2 Est GFR (CKD-EPI)AfAm 78.98 Est GFR (CKD-EPI)NonAf 68.14 Random Glucose 93 Calcium 8.6 Total Bilirubin 1.1 H Direct Bilirubin AST 50 H ALT 78 H Alkaline Phosphatase 89 Total Protein 6.1 L Albumin 3.2 L Syphilis Serology Non-reactive 04/08/20 08:30 WBC RBC Hgb Hct MCV MCH MCHC RDW Plt Count MPV Sodium Potassium Chloride Carbon Dioxide Anion Gap BUN Creatinine Est GFR (CKD-EPI)AfAm Est GFR (CKD-EPI)NonAf Random Glucose Calcium Total Bilirubin 0.2 Direct Bilirubin 0.1 AST 38 H ALT 72 H Alkaline Phosphatase 112 Total Protein 6.2 L Albumin 3.3 L Syphilis Serology aaox3 ambulating no acute distress lungs cta Assessment: 04/10/20 11:14 no withdrawals Plan: d/c today
--- NOTE | 2020-04-10 11:16 | DS ---
[facility] Detox Discharge Summary Admission Date: 04/06/20 Discharge Date: 04/10/20 - History Present History: Alcohol Dependence, Cocaine Dependence - Physical Exam Results Vital Signs: Vital Signs Temperature 97.8 F 04/10/20 05:36 Pulse Rate 64 04/10/20 05:36 Respiratory Rate 04/10/20 05:36 Blood Pressure 108/71 04/10/20 05:36 O2 Sat by Pulse Oximetry (%) 95 04/10/20 05:36 Pertinent Admission Physical Exam Findings: Vital Signs Temperature 97.8 F 04/10/20 05:36 Pulse Rate 64 04/10/20 05:36 Respiratory Rate 04/10/20 05:36 Blood Pressure 108/71 04/10/20 05:36 O2 Sat by Pulse Oximetry (%) 95 04/10/20 05:36 Laboratory Tests 04/07/20 04/07/20 04/07/20 07:30 07:30 07:30 WBC 4.5 RBC 4.45 Hgb 14.7 Hct 43.9 MCV 98.6 H MCH 33.0 MCHC 33.5 RDW 14.8 D Plt Count 201 MPV 9.2 Sodium 142 Potassium 3.7 Chloride 106 Carbon Dioxide 34 H Anion Gap 3 L BUN 16.2 Creatinine 1.2 Est GFR (CKD-EPI)AfAm 78.98 Est GFR (CKD-EPI)NonAf 68.14 Random Glucose 93 Calcium 8.6 Total Bilirubin 1.1 H Direct Bilirubin AST 50 H ALT 78 H Alkaline Phosphatase 89 Total Protein 6.1 L Albumin 3.2 L Syphilis Serology Non-reactive 04/08/20 08:30 WBC RBC Hgb Hct MCV MCH MCHC RDW Plt Count MPV Sodium Potassium Chloride Carbon Dioxide Anion Gap BUN Creatinine Est GFR (CKD-EPI)AfAm Est GFR (CKD-EPI)NonAf Random Glucose Calcium Total Bilirubin 0.2 Direct Bilirubin 0.1 AST 38 H ALT 72 H Alkaline Phosphatase 112 Total Protein 6.2 L Albumin 3.3 L Syphilis Serology aaox3 ambulating no acute distress lungs CTA - Treatment Hospital Course: Detox Protocol Followed, Detoxed Safely, Responded well, Discharged Condition Good, Rehab Referral Accepted - Medication Discharge Medications: Ambulatory Orders NK [No Known Home Medication] 04/06/20 - Diagnosis (1) Alcohol dependence with withdrawal, uncomplicated Current Visit: Yes Status: Chronic (2) Cocaine dependence Current Visit: Yes Status: Chronic Qualifiers: Substance use status: uncomplicated Qualified Code(s): F14.20 - Cocaine dependence, uncomplicated (3) Nicotine dependence, unspecified, uncomplicated Current Visit: Yes Status: Chronic Qualifiers: Nicotine product type: cigarettes Qualified Code(s): F17.210 - Nicotine dependence, cigarettes, uncomplicated (4) Opioid abuse, uncomplicated Current Visit: No Status: Chronic - AMA Did Patient Leave Against Medical Advice: No
[2020-04-11] MEDS ORDERED: chlordiazePOXIDE HCL 10 MG CAPSULE PO ONE (05:00)
== END 2020-04-10 11:15 | disposition home or self-care (01) | DRG 774 ==
LOC: YASAS 17:33 → Y6N 21:16
PROVIDERS: ADMIT Allergy & Immunology; ATTEND Allergy & Immunology
PROC: HZ2ZZZZ Detoxification Services for Substance Abuse Treatment (ICD-10-PCS; principal; 2020-04-06)
DX: F10.230 Alcohol dependence with withdrawal, uncomplicated (principal); F14.20 Cocaine dependence, uncomplicated; F17.210 Nicotine dependence, cigarettes, uncomplicated; E11.9 Type 2 diabetes mellitus without complications; L85.3 Xerosis cutis; R94.5 Abnormal results of liver function studies; R03.0 Elevated blood-pressure reading, without diagnosis of hypertension; Z86.718 Personal history of other venous thrombosis and embolism; Z86.711 Personal history of pulmonary embolism; Z91.010 Allergy to peanuts; Z91.011 Allergy to milk products
CPT/HCPCS: 36415; 80053; 80076; 85027; 86780; U0003

== ENCOUNTER 2022-05-06 23:07 | Inpatient (IN) | payer OTHER ==
[2022-05-06 17:08] VITALS: RESP 18; BMI 26.6
[2022-05-06] MEDS ORDERED: MAGNESIUM HYDROX 2400MG/30ML ORAL SUSPENSION 30 ML CUP PO PRN (23:09)
[2022-05-06] MEDS ORDERED: ACETAMINOPHEN 325 MG TABLET (FP) PO PRN ×2 (23:09)
[2022-05-06] MEDS ORDERED: BISMUTH SUBSALICYLATE 524 MG/30 ML PO PRN (23:09)
[2022-05-06] MEDS ORDERED: guaiFENesin 200 MG/10 ML 10 ML UNIT-DOSE CUPS PO PRN (23:09)
[2022-05-06] MEDS ORDERED: DICYCLOMINE HCL 10 MG CAPSULE PO PRN (23:09)
[2022-05-06] MEDS ORDERED: BENZOCAINE/MENTHOL (CHLORASEPTIC ) LOZENGE MM PRN (23:09)
[2022-05-06] MEDS ORDERED: MAG HYDROX/AL HYDROX/SIMETH 30 ML UNIT-DOSE CUP PO PRN (23:09)
[2022-05-06] MEDS ORDERED: MAGNESIUM CITRATE 300 ML BOTTLE PO PRN (23:09)
[2022-05-06] MEDS ORDERED: IBUPROFEN 600 MG TABLET (FP) PO PRN (23:09)
[2022-05-06] MEDS ORDERED: METHOCARBAMOL 500 MG TABLET PO PRN (23:09)
[2022-05-06] MEDS ORDERED: hydrOXYzine PAMOATE 25 MG CAPSULE (FP) PO PRN (23:09)
[2022-05-06] MEDS ORDERED: P-EPHED 60MG/TRIPROLIDI 2.5MG TABLET PO PRN (23:09)
[2022-05-06] MEDS ORDERED: MELATONIN 5 MG TABLETS PO PRN (23:09)
[2022-05-06] MEDS ORDERED: ONDANSETRON *ODT* 4 MG TABLET SL PRN (23:09)
[2022-05-06] MEDS ORDERED: IBUPROFEN 400 MG TABLET (FP) PO PRN (23:09)
[2022-05-06] MEDS ORDERED: LOPERAMIDE HCL 2 MG CAPSULE PO PRN (23:09)
[2022-05-06] MEDS ORDERED: diazePAM 5 MG TABLET PO PRN (23:13)
[2022-05-07] MEDS: RIVAROXABAN 15 MG TABLET PO SCH (09:22)
[2022-05-07] MEDS: chlordiazePOXIDE HCL 25 MG CAPSULE PO SCH ×3 (13:57→22:36)
[2022-05-07] MEDS: PRENATAL VITAMINS W/ FOLIC ACID TABLET (FP) PO SCH (13:57)
[2022-05-07] MEDS ORDERED: THIAMINE HCL 100 MG TABLET (FP) PO SCH (22:00)
[2022-05-08] MEDS: chlordiazePOXIDE HCL 25 MG CAPSULE PO SCH ×2 (05:44→10:24)
[2022-05-08] MEDS: RIVAROXABAN 15 MG TABLET PO SCH ×2 (09:00→10:56)
[2022-05-08 09:41] VITALS: BP 109/59; PULSE 91; TEMP 98
[2022-05-08] MEDS: PRENATAL VITAMINS W/ FOLIC ACID TABLET (FP) PO SCH (10:26)
[2022-05-09] MEDS ORDERED: chlordiazePOXIDE HCL 25 MG CAPSULE PO SCH (05:00)
[2022-05-10] MEDS ORDERED: chlordiazePOXIDE HCL 10 MG CAPSULE PO SCH (05:00)
[2022-05-11] MEDS ORDERED: chlordiazePOXIDE HCL 10 MG CAPSULE PO SCH (05:00)
[2022-05-12] MEDS ORDERED: chlordiazePOXIDE HCL 10 MG CAPSULE PO ONE (05:00)
== END 2022-05-08 11:40 | disposition left against medical advice (07) | DRG 770 ==
LOC: YASAS 23:07 → Y6N 05-07 13:31
PROVIDERS: ADMIT Allergy & Immunology; ATTEND Surgery
PROC: HZ2ZZZZ Detoxification Services for Substance Abuse Treatment (ICD-10-PCS; principal; 2022-05-07)
DX: F10.230 Alcohol dependence with withdrawal, uncomplicated (principal); F14.20 Cocaine dependence, uncomplicated; F17.210 Nicotine dependence, cigarettes, uncomplicated; I82.411 Acute embolism and thrombosis of right femoral vein; I82.431 Acute embolism and thrombosis of right popliteal vein; I82.432 Acute embolism and thrombosis of left popliteal vein; Z79.01 Long term (current) use of anticoagulants; Z86.711 Personal history of pulmonary embolism; Z91.010 Allergy to peanuts; Z91.011 Allergy to milk products
CPT/HCPCS: 36415; 71046-TC-FY; 80053; 85025; 86780; 87040; 87811; 93005; 93010; 93970-TC; 99282-25; C9803-CS; Q0162; U0003; U0005